=== PATIENT | female | born 1995 | race Native Hawaiian/Other Pacific Islander ===

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

== ENCOUNTER 2018-01-30 19:18 | Emergency (ER) | payer OTHER ==
[~2018-01-30] VITALS: Ht 162.6 cm; Wt 63.5 kg
[2018-01-30 20:15] VITALS: BP 119/75; TEMP 98.6
== END 2018-01-30 20:19 | disposition home or self-care (01) ==
LOC: ED 19:18
DX: L02.31 Cutaneous abscess of buttock (principal)
CPT/HCPCS: 96372; 99282; J1885

== ENCOUNTER 2018-01-31 07:31 | Day surgery (SDC) | payer OTHER ==
[2018-01-31 08:42] LABS: PLATELET COUNT 211 K/uL (152-353)
[2018-01-31 08:55] LABS: POTASSIUM 4.3 mmol/L (3.6-5.2)
== END 2018-01-31 11:20 | disposition home or self-care (01) ==
LOC: OR 07:31
PROVIDERS: Student in an Organized Health Care Education/Training Program
PROC: 0H98XZZ Drainage of Buttock Skin, External Approach (ICD-10-PCS; principal; 2018-01-31)
DX: L05.01 Pilonidal cyst with abscess (principal)
CPT/HCPCS: 80053; 81025; 85027; 87070; 87076; 87205; J1170; J2001; J2250; J2704; J3010

== ENCOUNTER 2018-06-30 11:26 | Inpatient (IN) | payer OTHER ==
[~2018-06-30] VITALS: Ht 162.6 cm; Wt 69.4 kg
[2018-06-30 11:48] VITALS: BP 112/67; TEMP 97.9
[2018-06-30 12:31] LABS: PLATELET COUNT 197 K/uL (152-353)
[2018-06-30 12:38] LABS: POTASSIUM 5.1 mmol/L (3.6-5.2)
[2018-06-30 23:27] VITALS: BP 103/45; TEMP 98
[2018-07-01] VITALS (25 sets, daily range): BP systolic 90–122; BP diastolic 41–71; TEMP 98.2–98.8; Ht 162.6 cm; Wt 69.4 kg
[2018-07-01 07:01] LABS: PLATELET COUNT 208 K/uL (152-353)
[2018-07-01 07:47] LABS: POTASSIUM 3.6 mmol/L (3.6-5.2)
[2018-07-02] VITALS (11 sets, daily range): BP systolic 93–125; BP diastolic 41–77; TEMP 97.9–98.3
[2018-07-02 07:54] LABS: POTASSIUM 3.3 mmol/L (3.6-5.2)
[2018-07-02 07:56] LABS: PLATELET COUNT 193 K/uL (152-353)
== END 2018-07-02 23:10 | disposition home or self-care (01) | DRG 639 ==
LOC: ED 11:26 → ICU 22:00 → MED/SURG 07-02 11:00
PROVIDERS: Emergency Medicine; ADMIT Family Medicine
DX: E10.10 Type 1 diabetes mellitus with ketoacidosis without coma (principal)
CPT/HCPCS: 36415; 36600; 80053; 81000; 81002; 81025; 82150; 82805; 82962; 83690; 83735; 84443; 85027; 94760; 96361; 96365; 96375; 96376; 99285; J2405; J3475; J3490

== ENCOUNTER 2018-08-10 14:19 | Outpatient (CLI) | payer OTHER | END 2018-08-10 23:59 | disposition home or self-care (01) | LOC: LABW 14:19 | DX: Z32.00 Encounter for pregnancy test, result unknown (principal) | CPT/HCPCS: 36415; 84702 ==

== ENCOUNTER 2018-09-13 14:32 | Outpatient (CLI) | payer OTHER | END 2018-09-13 20:35 | disposition home or self-care (01) | LOC: US 14:32 | DX: Z34.81 Encounter for supervision of other normal pregnancy, first trimester (principal); N30.21 Other chronic cystitis with hematuria ==

== ENCOUNTER 2018-10-26 21:22 | Emergency (ER) | payer OTHER ==
[~2018-10-26] VITALS: Ht 154.9 cm; Wt 72.1 kg
[2018-10-26] MEDS ORDERED: LEVO0.0529 PO (21:36)
[2018-10-26 21:50] LABS: PLATELET COUNT 188 K/uL (152-353)
[2018-10-26 22:09] LABS: POTASSIUM 3.4 mmol/L (3.6-5.2)
[2018-10-26 23:46] VITALS: BP 121/68; TEMP 98.2
== END 2018-10-26 23:46 | disposition home or self-care (01) ==
LOC: ED 21:22
PROVIDERS: Student in an Organized Health Care Education/Training Program
DX: O24.012 Pre-existing type 1 diabetes mellitus, in pregnancy, second trimester (principal); E10.649 Type 1 diabetes mellitus with hypoglycemia without coma; Z3A.15 15 weeks gestation of pregnancy; O21.1 Hyperemesis gravidarum with metabolic disturbance; Z79.4 Long term (current) use of insulin; Z96.41 Presence of insulin pump (external) (internal)
CPT/HCPCS: 80053; 81000; 82150; 82962; 83690; 85027; 96365; 96375; 99284; J2550; J7060

== ENCOUNTER 2018-10-31 08:25 | Outpatient (CLI) | payer OTHER ==
[~2018-10-31 08:25] MED LIST changes: +LEVO0.0529 PO
== END 2018-10-31 23:27 | disposition home or self-care (01) ==
LOC: RESP 08:25
DX: E10.9 Type 1 diabetes mellitus without complications (principal)
CPT/HCPCS: 93005; 93306

== ENCOUNTER 2018-12-18 13:49 | Outpatient (CLI) | payer OTHER | END 2018-12-18 22:19 | disposition home or self-care (01) | LOC: LABW 13:49 | DX: E03.8 Other specified hypothyroidism (principal); E06.3 Autoimmune thyroiditis | CPT/HCPCS: 36415; 84439 ==

== ENCOUNTER 2019-02-01 15:27 | Outpatient (CLI) | payer OTHER | END 2019-02-01 22:05 | disposition home or self-care (01) | LOC: LABW 15:27 | DX: E10.9 Type 1 diabetes mellitus without complications (principal); E03.9 Hypothyroidism, unspecified | CPT/HCPCS: 36415; 83036; 84436; 84443; 84479 ==

== ENCOUNTER 2022-05-31 09:35 | Outpatient (CLI) | payer OTHER | END 2022-05-31 18:59 | disposition home or self-care (01) | LOC: US 09:35 | PROVIDERS: ATTEND Nurse Practitioner Family | DX: R74.8 Abnormal levels of other serum enzymes (principal); E04.9 Nontoxic goiter, unspecified ==